=== PATIENT | female | born 1990 ===

== ENCOUNTER 2017-12-26 17:37 | Emergency (ER) | payer BC ==
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
== END 2017-12-26 19:01 | disposition home or self-care (01) ==
LOC: ER 17:37
DX: S63.502A Unspecified sprain of left wrist, initial encounter (principal); S53.402A Unspecified sprain of left elbow, initial encounter; V87.0XXA Person injured in collision between car and two- or three-wheeled powered vehicle (traffic), initial encounter
CPT/HCPCS: 99283; 99284